=== PATIENT | male | born 1950 | race Caucasian/White ===

== ENCOUNTER 2017-08-01 06:33 | Day surgery (SDC) | payer BC ==
[~2017-08-01] VITALS: Ht 170.2 cm; Wt 91.7 kg
[~2017-08-01 06:33] MED LIST: BENICAR40 MG PO; COREG 25MG25 MG/TAB PO; HCTZ PO; MVI PO
[2017-08-01 07:16] VITALS: BP 158/73; PULSE 72; TEMP 97.8
[2017-08-01] MEDS ORDERED: SINGULAIR 110 MG/TAB PO (07:27)
[2017-08-01] MEDS ORDERED: LASIX 20MG TABL20 MG PO (07:28)
[2017-08-01] MEDS ORDERED: ZYLOPRIM 300MG300 MG PO (07:28)
[2017-08-01] MEDS ORDERED: NORCO 325 MG-51 TAB PO (09:39)
[2017-08-01 10:15] VITALS: BP 151/71; PULSE 84; TEMP 97
[2017-08-01 10:30] VITALS: BP 148/61; PULSE 82
[2017-08-01 10:45] VITALS: BP 135/51; PULSE 74
[2017-08-01 11:00] VITALS: BP 127/79; PULSE 83
[2017-08-01 11:10] VITALS: BP 148/80; PULSE 83; TEMP 98.2
[2017-08-03] VITALS (389 sets, daily range): O2SAT 91–100
== END 2017-08-01 11:15 | disposition home or self-care (01) ==
LOC: SDCO 06:33
DX: K43.2 Incisional hernia without obstruction or gangrene (principal); I11.0 Hypertensive heart disease with heart failure; I50.9 Heart failure, unspecified; Q61.3 Polycystic kidney, unspecified; G47.33 Obstructive sleep apnea (adult) (pediatric); K21.9 Gastro-esophageal reflux disease without esophagitis; Z85.72 Personal history of non-Hodgkin lymphomas; Z81.8 Family history of other mental and behavioral disorders; Z82.49 Family history of ischemic heart disease and other diseases of the circulatory system; Z84.1 Family history of disorders of kidney and ureter
CPT/HCPCS: C1781; J0690; J1100; J1885; J2250; J2405; J2704; J3010; J7120

== ENCOUNTER 2017-08-03 02:01 | Inpatient (IN) | payer BC ==
[~2017-08-03] VITALS: Ht 170.2 cm; Wt 93.9 kg
[~2017-08-03 02:01] MED LIST changes: +LASIX 20MG TABL20 MG PO; +NORCO 325 MG-51 TAB PO; +SINGULAIR 110 MG/TAB PO; +ZYLOPRIM 300MG300 MG PO
[2017-08-03 02:26] LABS: BASO % 0.2 % (0.0-2.0); EOS # 0.1 (0.0-0.7); EOS % 0.5 % (0-4.0); GRAN # 10.9 (1.4-6.5); GRAN % 83.5 % (42.2-75.2); HEMATOCRIT 37.8 % (42.0-52.0); HEMOGLOBIN 13.3 g/dl (13.5-18.0); LYMPH % 7.5 % (20.0-51.0); MEAN CELL VOLUME 86 fl (80.0-100.0); MEAN CORPUSCULAR HEMOGLOBIN 30 pg (27.0-31.0); MEAN CORPUSCULAR HGB CONC 35 g/dl (33.0-37.0); MEAN PLATELET VOLUME 9.5 fl (7.4-10.4); MONO % 7.8 % (1.7-9.3); PLATELET COUNT 141 K/mm3 (130-400); RED BLOOD COUNT 4.42 M/mm3 (4.20-5.60); REDCELL DISTRIBUTION WIDTH-CV 13.4 % (11.5-14.5)
[2017-08-03 02:31] LABS: INR 0.9 (0.8-3.0); PROTHROMBIN TIME 10.3 SECONDS (9.7-12.8)
[2017-08-03 02:34] LABS: PARTIAL THROMBOPLASTIN TIME 26.1 SECONDS (26.0-37.0)
[2017-08-03 02:36] LABS: ADJUSTED CALCIUM 9.4 mg/dL (8.4-10.2); ALBUMIN 3.6 gm/dL (3.5-5.0); BILIRUBIN,TOTAL 0.5 mg/dL (0.0-1.0); CALCIUM 9.1 mg/dL (8.4-10.2); CREATININE, serum 1.52 mg/dL (0.66-1.25); POTASSIUM 4.3 mmol/L (3.4-5.0); TOTAL PROTEIN 6.5 gm/dL (6.4-8.2)
[2017-08-03] MEDS ORDERED: TYLENOL W/COD1 UDTAB PO (02:40)
[2017-08-03] MEDS ORDERED: PERCOCET 325 MG1 TA2 (02:41)
[2017-08-03 03:01] LABS: TROPONIN-I 0.064 ng/mL (0.000-0.034)
[2017-08-03 04:00] VITALS: BP 150/88; PULSE 63; TEMP 98.8
[2017-08-03 07:16] VITALS: BP 150/88; PULSE 63; TEMP 98.8
[2017-08-03 07:42] VITALS: BP 155/82; PULSE 60
[2017-08-03 10:40] VITALS: BP 143/76; PULSE 61
[2017-08-03 13:12] VITALS: BP 114/74; PULSE 65; TEMP 98
== END 2017-08-03 13:15 | disposition short-term general hospital (02) | DRG 281 ==
LOC: COL.ER 02:01 → ICU 03:08
PROVIDERS: Family Medicine; Internal Medicine
PROC: B2111ZZ Fluoroscopy of Multiple Coronary Arteries using Low Osmolar Contrast (ICD-10-PCS; principal; 2017-08-03)
DX: I21.4 Non-ST elevation (NSTEMI) myocardial infarction (principal); E87.1 Hypo-osmolality and hyponatremia; Q61.3 Polycystic kidney, unspecified; I50.22 Chronic systolic (congestive) heart failure; I25.10 Atherosclerotic heart disease of native coronary artery without angina pectoris; I11.0 Hypertensive heart disease with heart failure; Z85.72 Personal history of non-Hodgkin lymphomas
CPT/HCPCS: 99223-AI; 99239; C1760; C1894; J1650; J2250; J3010; J7030; Q9967

== ENCOUNTER 2017-11-27 15:03 | Outpatient (RCR) | payer MEDICARE, BC ==
[~2017-11-27 15:03] MED LIST changes: +PERCOCET 325 MG1 TA2; +TYLENOL W/COD1 UDTAB PO
== END 2017-11-28 | disposition home or self-care (01) ==
LOC: COL.CR
DX: I21.9 Acute myocardial infarction, unspecified (principal); Z95.1 Presence of aortocoronary bypass graft; I25.10 Atherosclerotic heart disease of native coronary artery without angina pectoris

== ENCOUNTER 2017-12-20 15:04 | Outpatient (RCR) | payer MEDICARE, BC | END 2018-02-27 | disposition still patient (30) | LOC: COL.CR | DX: Z48.812 Encounter for surgical aftercare following surgery on the circulatory system (principal); Z95.1 Presence of aortocoronary bypass graft; I25.10 Atherosclerotic heart disease of native coronary artery without angina pectoris ==

== ENCOUNTER → 2018-08-28 | Outpatient (CLI) | payer MEDICARE, BC | LOC: COL.RAD 12:56 | DX: K43.2 Incisional hernia without obstruction or gangrene (principal); Q61.3 Polycystic kidney, unspecified; Z98.890 Other specified postprocedural states ==

== ENCOUNTER → 2019-01-30 | Outpatient (CLI) | payer MEDICARE, BC ==
[2019-01-30] VITALS (7 sets, daily range): BP systolic 123–141; BP diastolic 70–79; PULSE 82–88
[~2019-01-30] VITALS: Ht 170.2 cm; Wt 88.7 kg
== END ==
LOC: COL.RAD 12:00
DX: C83.33 Diffuse large B-cell lymphoma, intra-abdominal lymph nodes (principal)
CPT/HCPCS: 32108

== ENCOUNTER 2019-02-12 21:03 | Emergency (ER) | payer MEDICARE, BC ==
[~2019-02-12] VITALS: Ht 170.2 cm; Wt 92.3 kg
[2019-02-12 21:22] VITALS: TEMP 98.8
[2019-02-12 22:07] LABS: MEAN CELL VOLUME 90 fl (80.0-100.0); MEAN CORPUSCULAR HGB CONC 32 g/dl (33.0-37.0); MEAN PLATELET VOLUME 10.6 fl (7.4-10.4); PLATELET COUNT 104 K/mm3 (130-400); RED BLOOD COUNT 3.25 M/mm3 (4.20-5.60)
[2019-02-12 22:14] LABS: HEMATOCRIT 29.1 % (42.0-52.0); HEMOGLOBIN 9.4 g/dl (13.5-18.0); MEAN CORPUSCULAR HEMOGLOBIN 29 pg (27.0-31.0)
[2019-02-12 22:17] LABS: INR 1.1 (0.8-3.0); PROTHROMBIN TIME 12.4 SECONDS (9.7-12.8)
[2019-02-12 22:18] LABS: ALBUMIN 2.8 gm/dL (3.5-5.0); BILIRUBIN,TOTAL 0.6 mg/dL (0.0-1.0); CREATININE, serum 2.2 mg/dL (0.66-1.25); TOTAL PROTEIN 5.7 gm/dL (6.4-8.2)
[2019-02-12 22:20] LABS: PARTIAL THROMBOPLASTIN TIME 30.4 SECONDS (26.0-37.0)
[2019-02-12 22:24] LABS: EOSINOPHIL 5 % (0-4); HYPOCHROMIA 1+; LYMPHOCYTE 15 % (20.0-51.0); NEUTROPHILS 69 % (42.0-75.2)
[2019-02-12 22:25] LABS: ANISOCYTOSIS 2+; MICROCYTOSIS 1+; PLATELET ESTIMATE NORMAL (NORMAL)
[2019-02-12 22:33] LABS: TROPONIN-I 0.11 ng/mL (0.000-0.035)
[2019-02-13 01:40] VITALS: BP 121/61; PULSE 88
== END 2019-02-13 05:45 | disposition short-term general hospital (02) ==
LOC: COL.ER 21:03
PROVIDERS: Emergency Medicine
DX: I50.9 Heart failure, unspecified (principal); E83.52 Hypercalcemia; I10 Essential (primary) hypertension; E78.5 Hyperlipidemia, unspecified; I25.10 Atherosclerotic heart disease of native coronary artery without angina pectoris; Z95.1 Presence of aortocoronary bypass graft
CPT/HCPCS: J1940; J7030

== ENCOUNTER 2019-02-27 13:00 | Day surgery (SDC) | payer MEDICARE, BC ==
[~2019-02-27] VITALS: Ht 170.2 cm; Wt 85.5 kg
[2019-02-27 13:52] VITALS: BP 146/81; PULSE 95; TEMP 97.6
[2019-02-27] MEDS ORDERED: PROTONIX 40MG T40 MG PO (14:53)
[2019-02-27] MEDS ORDERED: COREG12.5 MG PO (14:53)
[2019-02-27] MEDS ORDERED: ZYLOPRIM 300MG300 MG PO (14:54)
[2019-02-27] MEDS ORDERED: LASIX 20MG TABL20 MG PO (14:54)
[2019-02-27] MEDS ORDERED: ASPIRIN 81M81 MG/TA2 PO (14:55)
[2019-02-27] MEDS ORDERED: LIPITOR 10MG10 MG PO (14:56)
[2019-02-27] MEDS ORDERED: SINGULAIR 110 MG/TAB PO (14:56)
[2019-02-27 15:59] VITALS: BP 120/83; PULSE 84
--- NOTE | 2019-02-27 15:59 | NUR ---
Patient returns to room 2 per cart from surgery and is awake and alert. Temp 97.9 and room air sats 94%. Wheeler set dressing x2 covering port a catheter insertion sites. No swelling or drainage noted from the sites. Temp 97.9 and room air sats 94%. IV fluids infusing and call light in reach. Siderails up x2. Spouse brought back to room. Patient is sipping on water and denies nausea or pain.
[2019-02-27 16:14] VITALS: BP 124/67; PULSE 85
--- NOTE | 2019-02-27 16:14 | NUR ---
Sipping on water and talking with spouse.
[2019-02-27 16:29] VITALS: BP 130/75; PULSE 84
--- NOTE | 2019-02-27 16:29 | NUR ---
Eating muffin and drinking water. Continues to deny pair or nausea.
[2019-02-27 16:44] VITALS: BP 137/73; PULSE 91
--- NOTE | 2019-02-27 16:44 | NUR ---
Patient tolerated muffin and water. Continues to deny pain. IV discontinued and patient ambulates to the bathroom. Gait is steay. Patient voids and returns to room. Dresses self.
--- NOTE | 2019-02-27 17:12 | NUR ---
Patient was given dismissal instructions and voices understanding of these. Given port a catheter information packet. Instructed to take Tylenol as needed for the pain. Patient dismissed to home to home driven by spouse and taken to the vehilce per wheelchair and assisted into car by RN with dismissal instructions in hand.
== END 2019-02-27 17:12 | disposition home or self-care (01) ==
LOC: SDCO 13:00
DX: C83.38 Diffuse large B-cell lymphoma, lymph nodes of multiple sites (principal); I11.0 Hypertensive heart disease with heart failure; I50.9 Heart failure, unspecified; G89.29 Other chronic pain; M54.9 Dorsalgia, unspecified; Q61.3 Polycystic kidney, unspecified; Z79.899 Other long term (current) drug therapy; G47.33 Obstructive sleep apnea (adult) (pediatric); J90 Pleural effusion, not elsewhere classified; K21.9 Gastro-esophageal reflux disease without esophagitis; Z92.21 Personal history of antineoplastic chemotherapy
CPT/HCPCS: C1788; J0690; J1644; J2704; J7120

== ENCOUNTER 2019-03-04 09:55 | Day surgery (SDC) | payer MEDICARE, BC ==
[~2019-03-04] VITALS: Ht 170.2 cm; Wt 87.0 kg
[~2019-03-04 09:55] MED LIST changes: +ASPIRIN 81M81 MG/TA2 PO; +COREG12.5 MG PO; +LIPITOR 10MG10 MG PO; +PROTONIX 40MG T40 MG PO
[2019-03-04 10:32] VITALS: BP 136/74; PULSE 91; TEMP 97.5
--- NOTE | 2019-03-04 10:50 | NUR ---
TO RM AT 1020- CALL LIGHT IN REACH AT BEDSIDE.
[2019-03-04 12:20] VITALS: BP 143/73; PULSE 85
--- NOTE | 2019-03-04 12:20 | NUR ---
TO RM 7 PER CART FROM PACU. ALERT ORIENTED X3, TALKING TO AND STAFF. RECEIVED WATER. DR CAMPBELL TALKED TO PRIOR TO PATIENT RETURNING TO RM. RESPIRATIONS EVEN AND NONLABORED. DENIES PAIN OR DISCOMFORT. DRESSING CLEAN DRY INTACT.
[2019-03-04 12:35] VITALS: BP 134/70; PULSE 85
[2019-03-04 12:41] LABS: PLEURAL FLUID COLOR YELLOW
[2019-03-04 12:42] LABS: PLEURAL FLUID APPEARANCE HAZY
[2019-03-04 12:43] LABS: PLEURAL FLUID RBC 4000 /mm3 (0-0); PLEURAL FLUID WBC 389 /mm3
--- NOTE | 2019-03-04 12:45 | NUR ---
RECEIVED MUFFIN AND COFFEE
[2019-03-04 13:00] LABS: GLUCOSE,PLEURAL FLUID 103 mg/dL
--- NOTE | 2019-03-04 13:05 | NUR ---
RECEIVED CXR RESULTS AND DR CAMPBELL CALLED- OK TO GO HOME. ATE 100% AND TOLERATED. RECEIVED DISCHARGE INSTRUCTIONS AND VERBALIZED UNDERSTANDING.
[2019-03-04 13:07] LABS: TOTAL PROTEIN,PLEURAL FLUID < 2.0 gm/dL
--- NOTE | 2019-03-04 13:20 | NUR ---
DISCHARGED PER WC BY NURSING STAFF TO PRIVATE CAR IN CARE OF
== END 2019-03-04 13:30 | disposition home or self-care (01) ==
LOC: COL.RAD 09:55 → SDCO 09:55
PROVIDERS: Internal Medicine Pulmonary Disease
DX: I13.0 Hypertensive heart and chronic kidney disease with heart failure and stage 1 through stage 4 chronic kidney disease, or unspecified chronic kidney disease (principal); N18.9 Chronic kidney disease, unspecified; I50.9 Heart failure, unspecified; I25.2 Old myocardial infarction; C83.34 Diffuse large B-cell lymphoma, lymph nodes of axilla and upper limb; Q61.3 Polycystic kidney, unspecified; G47.33 Obstructive sleep apnea (adult) (pediatric); Z79.82 Long term (current) use of aspirin; Z79.899 Other long term (current) drug therapy; Z92.21 Personal history of antineoplastic chemotherapy; Z92.3 Personal history of irradiation

== ENCOUNTER 2019-03-12 15:20 | Inpatient (IN) | payer MEDICARE, BC ==
[~2019-03-12] VITALS: Ht 170.2 cm; Wt 91.8 kg
[~2019-03-12 15:20] MED LIST changes: +PREDNISONE20 MG PO
[2019-03-12 15:58] VITALS: BP 139/78; PULSE 130
[2019-03-12] MEDS ORDERED: CALCIUM CARBON650 M2 PO (16:18)
[2019-03-12] MEDS ORDERED: LASIX 20MG TABL20 MG PO (16:21)
--- NOTE | 2019-03-12 16:34 | NUR ---
Assessment completed, alert/oriented, vital signs stable, heart Regular/ tachycardic, 3+edema to BLE, abdomen distended and patient is SOA even at rest, lungs CTA/ diminished throughout, has hx of CHF and fluid overload, recent had bilateral thoracetesis done with large amount of drainage recorded, distal pulses are palpable, denies any chest pains, home meds reconciled / pharmacy and allergies reviewed, presetn at bedside, Have attempted to call for new orders with no orders, will try again
[2019-03-12 19:01] VITALS: BP 133/77; PULSE 110; TEMP 98.4
[2019-03-12 19:02] LABS: MEAN CELL VOLUME 88 fl (80.0-100.0); MEAN CORPUSCULAR HGB CONC 33 g/dl (33.0-37.0); MEAN PLATELET VOLUME 10.3 fl (7.4-10.4); PLATELET COUNT 50 K/mm3 (130-400); RED BLOOD COUNT 3.02 M/mm3 (4.20-5.60); REDCELL DISTRIBUTION WIDTH-CV 15.7 % (11.5-14.5)
[2019-03-12 19:21] LABS: ALBUMIN 2.7 gm/dL (3.5-5.0); BILIRUBIN,TOTAL 0.5 mg/dL (0.0-1.0); CALCIUM 6.6 mg/dL (8.4-10.2); CREATININE, serum 1.39 (0.66-1.25); TOTAL PROTEIN 5.1 gm/dL (6.4-8.2)
[2019-03-12 19:29] LABS: HEMATOCRIT 26.7 % (42.0-52.0); HEMOGLOBIN 8.8 g/dl (13.5-18.0); MEAN CORPUSCULAR HEMOGLOBIN 29 pg (27.0-31.0)
[2019-03-12 19:47] LABS: BAND 4 % (0-10); EOSINOPHIL 1 % (0-4); LYMPHOCYTE 11 % (20.0-51.0); NEUTROPHILS 83 % (42.0-75.2); PLATELET ESTIMATE NORMAL (NORMAL)
[2019-03-12 19:49] LABS: MICROCYTOSIS 1+; TARGET CELLS 2+
--- NOTE | 2019-03-12 19:49 | NUR ---
Patient sitting up in bed with at bedside. Assessment completed- lung sounds diminished in bases, abdominal sounds active but distended abdomen, bilateral lower extremity edema +3, pulses +2, denies pain. Urinal at bedside. Bumex drip infusing. No needs at this time.
[2019-03-12 21:32] LABS: PH 5 (5-8); SQUAMOUS EPITHELIAL None Seen /hpf; URINE APPEARANCE Clear; URINE BACTERIA None Seen /hpf; URINE BILIRUBIN Negative (NEGATIVE); URINE BLOOD Negative (NEGATIVE); URINE COLOR Colorless; URINE GLUCOSE Negative (NEGATIVE); URINE KETONE Negative (NEGATIVE); URINE LEUKOCYTE ESTERASE Negative (NEGATIVE); URINE NITRATE Negative (NEGATIVE); URINE PROTEIN(semi-quant) Negative (NEGATIVE); URINE RBC None Seen /hpf; URINE UROBILINOGEN Negative (NEGATIVE); URINE WBC 0-2 /hpf
[2019-03-12 21:36] LABS: URINE PROTEIN:CREAT RATIO 0.91 (0.00-0.14)
[2019-03-12 21:38] LABS: COLLECTION METHOD CLEAN CATCH
[2019-03-13 00:16] VITALS: BP 127/76; PULSE 104; TEMP 99.3
[2019-03-13 03:50] VITALS: BP 123/70; PULSE 103; TEMP 98.6
--- NOTE | 2019-03-13 05:05 | NUR ---
Pt slept on/off last night, VSS, no reports of pain. On bumex drip, using urinal at bedside. No needs at this time.
[2019-03-13 05:42] LABS: MEAN CELL VOLUME 87 fl (80.0-100.0); MEAN CORPUSCULAR HGB CONC 33 g/dl (33.0-37.0); MEAN PLATELET VOLUME 11.5 fl (7.4-10.4); RED BLOOD COUNT 3.04 M/mm3 (4.20-5.60); REDCELL DISTRIBUTION WIDTH-CV 15.7 % (11.5-14.5)
[2019-03-13 05:51] LABS: HEMATOCRIT 26.4 % (42.0-52.0); HEMOGLOBIN 8.7 g/dl (13.5-18.0); MEAN CORPUSCULAR HEMOGLOBIN 29 pg (27.0-31.0)
[2019-03-13 05:54] LABS: ALBUMIN 2.9 gm/dL (3.5-5.0); CALCIUM 7.2 mg/dL (8.4-10.2); CREATININE, serum 1.68 (0.66-1.25); MAGNESIUM 1.5 mg/dL (1.6-2.3); PHOSPHOROUS 2.7 mg/dL (2.5-4.5); POTASSIUM 3.7 mmol/L (3.4-5.0)
[2019-03-13 05:55] LABS: PLATELET COUNT 49 K/mm3 (130-400)
[2019-03-13 06:15] LABS: BAND 22 % (0-10); EOSINOPHIL 6 % (0-4); LYMPHOCYTE 16 % (20.0-51.0); NEUTROPHILS 56 % (42.0-75.2); PLATELET ESTIMATE DECREASED (NORMAL)
[2019-03-13 06:16] LABS: ANISOCYTOSIS 1+; HYPOCHROMIA 1+
[2019-03-13 06:18] LABS: OVALOCYTES 1+
--- NOTE | 2019-03-13 06:44 | NUR ---
Report given to RHYS Zavaleta.
[2019-03-13 08:20] VITALS: BP 118/73; PULSE 101; TEMP 98.1
--- NOTE | 2019-03-13 10:05 | NUR ---
Assessment completed, alert/oriented, vital signs stable, denies pain or discomfort, stated he is feeling much better after diuresing overnight, stated his breathing is easier and his abdomen is less firm, we have recorded good urine output overnight/ >5 L. out, his creatnine is slightly bumped from yesterday, replacing potassium per protocol, lungs CTA/ diminished, heart RRR/ slightly tachy, distal pulses are palpable, 2-3+ edema to BLE, good compliance with fluid restriction, present at bedside, deny other needs at this time, i will discuss plan of care with
[2019-03-13 11:11] VITALS: BP 103/63; PULSE 97; TEMP 98.2
--- NOTE | 2019-03-13 13:30 | NUR ---
FRANCES obrien met with the patient and his , Dariana, to discuss discharge planning. The patient lives in [place] with his . The patient reports independence with ADLs and has a walker and cane but does not use them. The patients PCP is Dr. Chalino Muniz and he gets his medications from [facility]. The patient reports no difficulties obtaining his medications. The patient does not have DPOA-HC in EMR but reports they have one completed at home. The patient plans to return home upon discharge with his . No additional needs at this time.
[2019-03-13 16:46] VITALS: BP 113/63; PULSE 105; TEMP 98.7
[2019-03-13 19:09] LABS: ALBUMIN 3.1 gm/dL (3.5-5.0); CALCIUM 7.8 mg/dL (8.4-10.2); CREATININE, serum 1.8 (0.66-1.25); MAGNESIUM 1.5 mg/dL (1.6-2.3); PHOSPHOROUS 1.9 mg/dL (2.5-4.5); POTASSIUM 4.2 mmol/L (3.4-5.0)
[2019-03-13 21:03] VITALS: BP 107/67; PULSE 102; TEMP 99.1
[2019-03-14 00:39] VITALS: BP 120/71; PULSE 112; TEMP 98.6
--- NOTE | 2019-03-14 01:44 | NUR ---
PT resting well in bed; No further assessed or verbalized complaints or concerns at times of rounds; Sodium Phosphate 15mmol IV running per orders; Will continue to monitor. CDA
[2019-03-14 03:54] VITALS: BP 117/47; PULSE 52; TEMP 98.7
[2019-03-14 06:06] LABS: MEAN CELL VOLUME 87 fl (80.0-100.0); MEAN CORPUSCULAR HGB CONC 33 g/dl (33.0-37.0); MEAN PLATELET VOLUME 10.4 fl (7.4-10.4); RED BLOOD COUNT 3.04 M/mm3 (4.20-5.60); REDCELL DISTRIBUTION WIDTH-CV 15.4 % (11.5-14.5)
[2019-03-14 06:11] LABS: HEMATOCRIT 26.5 % (42.0-52.0); HEMOGLOBIN 8.6 g/dl (13.5-18.0); MEAN CORPUSCULAR HEMOGLOBIN 28 pg (27.0-31.0); PLATELET COUNT 32 K/mm3 (130-400)
[2019-03-14 06:26] LABS: ALBUMIN 2.9 gm/dL (3.5-5.0); CALCIUM 7.7 mg/dL (8.4-10.2); CREATININE, serum 1.77 (0.66-1.25); MAGNESIUM 1.8 mg/dL (1.6-2.3); PHOSPHOROUS 3.3 mg/dL (2.5-4.5); POTASSIUM 3.8 mmol/L (3.4-5.0)
--- NOTE | 2019-03-14 06:48 | NUR ---
Report given to RHYS Zavaleta; New med order from Dr. Ziegler and consult called; PT placed on Reverse ISO with consult request for Dr. Ziegler per Dr. Dillard; No other noted changes or concerns at time of shift change. CDA
[2019-03-14 07:33] VITALS: BP 95/49; PULSE 62; TEMP 98.2
[2019-03-14 07:40] LABS: BAND 6 % (0-10); EOSINOPHIL 6 % (0-4); HYPOCHROMIA 1+; LYMPHOCYTE 40 % (20.0-51.0); NEUTROPHILS 28 % (42.0-75.2); PLATELET ESTIMATE DECREASED (NORMAL)
--- NOTE | 2019-03-14 08:04 | NUR ---
Assessment completed, alert/oriented, vital signs stable/ slightly hypotensive this morning/ held Coreg dose for now and will reassess, denies pain or discomfort, reports he is breathing easier and overall feeling better, lungs sound much more cleaar/ bases still diminished, patient has had good urine output, was having cramps last night and electrolytes rechecked and replaced/ cramps have resolved, Bumex gtt stopped and changed to IV push q8hr, edema in BLE still 2-3+ encouraged SCDs and elevation, WBC dropped again and we have consulted / will give Granix injection, patient is up in the chair, denies other needs at this time
--- NOTE | 2019-03-14 10:19 | NUR ---
Initial visit; Patient thanked Elementary Education Teacher for looking in on him and offering God's blessings and to keep him in her prayers.
[2019-03-14 11:24] VITALS: BP 92/48; PULSE 81; TEMP 98.1
--- NOTE | 2019-03-14 14:15 | NUR ---
Report given to RHYS Escobedo who is assuming patients care from this point on, at this time patient sitting up in chair, denies needs
--- NOTE | 2019-03-14 15:00 | NUR ---
pt denies pain, SOB, does request something "for anxiety, because I can't nap when I wake up suddenly feeling like I can't breath". pt has no noted effort of breathing at this time, will check meds. Physical assessment completed, lungs are clear throughout but pt has 2+ to 3+ edema in BLE. INt site free of redness, swelling. SCD's applied. Pt denies needs
[2019-03-14 16:32] VITALS: BP 129/86; PULSE 93; TEMP 97.8
--- NOTE | 2019-03-14 16:40 | NUR ---
See Code Blue Record for further details This RN was second to respond to 's room after suspected seizure activity. Upon entering room pt awake and alert stating "I was asleep and woke up feeling anxious". ROBIN Reyes was in room obtaining vitals at this time before calling out for help. RHYS Parada was called and arrived without delay. 1642 pt's eyes rolled back and became unresponsive with arm and leg movements with drooling and tongue became exposed from mouth. Pt's vitals obtained, femoral pulse detected, breaths laborous and prolonged. Pt transfered from recliner to bed without difficulty, additional staff summoned. 165: V-Fib noted on Zoll monitor, pulse absent, CPR initiated by RHYS Escobedo 165: Pulse detected, CPR stopped, spontaneous respirations noted 1705: Arrived to ICU room 5, attached to monitors, NIBP obtained, femoral pulse detected. 1730: Pulse undetected, PEA noted on EKG, CPR resumed by RHYS Rocha. Left External Jugular 18g IV inserted by MD Paolo. 20g Right Hand IV inserted by RN 1739: Femoral pulse detected, CPR stopped 1740: MD Paolo speaking with family 1743: Ventricular tachycardia noted, CPR resumed, family wishes to stop (make pt DNR). CPR stopped. All monitors off, ETT removed, OG tube removed, pt cleaned using warm wipes, IV tubing and pumps removed, cafeteria called and comfort care package requested and brought. All family invited into room, chaplain Pearson remining with pt.
--- NOTE | 2019-03-14 16:42 | NUR ---
This nurse was called into patient's room for reported seizure activity by CNA. Gardner RN also at bedside. Upon entry, pt sitting up in the chair conversing with staff. He is completely A/O x3. Vitals attained. Pt's pupils were equal and reactive, pt states he was feeling SOB and feeling anxious. Pt's nurse notified. Shortly after, patient starts having what appeared to be another seizure while sitting in the chair. Pt not breathing well at this point, pt was moved from the chair to the bed by staff members. Pt turned on side, pulse ox on and in place. Oxygen obtained for sat's in 70's. Dr Gilbert now in at bedside. Cat call at 1645, followed by code call at 1643. See code notes for further information.
--- NOTE | 2019-03-14 16:42 | NUR ---
Karma RN approached this RN asking if pt had history of seizure, as an observed episode had just occurred. This RN entered pt room, pt was sitting upright in chair, responsive, interractive, vitals were being taken by Kyaw Reyes CNA, RN at bedside performing assessment. Pt began an episode of eyes rolling back in head, his head bobbing and body convulsing, Karma and Jj Rn both at bedside this Rn left to ask Dr Gilbert to come to bedside, and called Dr Dillard. Dr Dillard call went to voicemail, this Rn then called and spoke with Nora to inform of situation admathew qureshi stated, "I'll tell Dr Dillard and have him call you back". This Rn informed mutuel clerk Gillian of observed events in room. returned to pt room, crash cart was pulled into room, RT at bedside bagging pt, Dr Gilbetr shortly thereafter initiated code blue. This Rn began compressions per direction. Code ensued, three rounds CPR performed with ROSC, pt transported to ICU, report given to Kyaw JOINER. No further needs in room, ICU staff attending.
[2019-03-14 17:01] LABS: ARTERIAL BLD GAS TCO2 CT 18.8; ARTERIAL BLOOD GAS HCO3 17.7 meq/L (22-26); ARTERIAL BLOOD GAS PCO2 36.5 mmHg (35-45)
[2019-03-14 17:02] LABS: ARTERIAL BLOOD GAS PO2 159.8 mmHg (80-100)
[2019-03-14 17:30] LABS: GRAN # 0.1 (1.4-6.5); GRAN % 4.7 % (42.2-75.2); LYMPH # 1.3 (1.2-3.4); LYMPH % 91.2 % (20.0-51.0); MEAN CELL VOLUME 90 fl (80.0-100.0); MEAN CORPUSCULAR HGB CONC 32 g/dl (33.0-37.0); MONO # 0.1 (0.1-0.6); MONO % 4.1 % (1.7-9.3); RED BLOOD COUNT 3.09 M/mm3 (4.20-5.60); REDCELL DISTRIBUTION WIDTH-CV 15.8 % (11.5-14.5)
[2019-03-14 17:37] LABS: ALBUMIN 3.1 gm/dL (3.5-5.0); BILIRUBIN,TOTAL 0.6 mg/dL (0.0-1.0); CALCIUM 8.1 mg/dL (8.4-10.2); CREATININE, serum 2.42 (0.66-1.25); MAGNESIUM 2.5 mg/dL (1.6-2.3); POTASSIUM 4.9 mmol/L (3.4-5.0); TOTAL PROTEIN 5.6 gm/dL (6.4-8.2)
[2019-03-14 17:53] LABS: HEMATOCRIT 27.8 % (42.0-52.0); HEMOGLOBIN 8.8 g/dl (13.5-18.0); MEAN CORPUSCULAR HEMOGLOBIN 28 pg (27.0-31.0); PLATELET COUNT 31 K/mm3 (130-400)
--- NOTE | 2019-03-14 18:26 | NUR ---
PT INTUBATED DURING CODE BY MOLD YARN SUPERVISOR. CONSISTANT COLOR CHANGE ON CO2 DETECTOR. [facility]. CXR PENDING. 8.0 OETT 23CM @ LIP. PT PLACED ON VENTILATOR UPON ARRIVAL TO ICU. REPEAT ABG PENDING.
--- NOTE | 2019-03-14 19:02 | NUR ---
[facility] notified of patient . Patient not a candidate, referral number [id number]
== END 2019-03-14 22:49 | disposition expired | DRG 291 ==
LOC: MEDICAL 15:20 → ICU 03-14 17:04 → MEDICAL 03-14 17:04 → ICU 03-14 22:49
PROVIDERS: Nurse Practitioner Family; ADMIT Internal Medicine Nephrology
PROC: 0BH17EZ Insertion of Endotracheal Airway into Trachea, Via Natural or Artificial Opening (ICD-10-PCS; principal; 2019-03-14)
PROC: 5A1935Z Respiratory Ventilation, Less than 24 Consecutive Hours (ICD-10-PCS; 2019-03-14)
DX: I13.0 Hypertensive heart and chronic kidney disease with heart failure and stage 1 through stage 4 chronic kidney disease, or unspecified chronic kidney disease (principal); I50.23 Acute on chronic systolic (congestive) heart failure; D61.810 Antineoplastic chemotherapy induced pancytopenia; J96.01 Acute respiratory failure with hypoxia; C85.10 Unspecified B-cell lymphoma, unspecified site; E87.1 Hypo-osmolality and hyponatremia; R04.89 Hemorrhage from other sites in respiratory passages; Z51.5 Encounter for palliative care; I49.01 Ventricular fibrillation; N18.3 Chronic kidney disease, stage 3 (moderate); E11.22 Type 2 diabetes mellitus with diabetic chronic kidney disease; I73.9 Peripheral vascular disease, unspecified; E78.5 Hyperlipidemia, unspecified; E83.51 Hypocalcemia; T45.1X5A Adverse effect of antineoplastic and immunosuppressive drugs, initial encounter
CPT/HCPCS: J0171; J0282; J0881; J1447; J3010; J3475; J7040; J7060